=== PATIENT | female | born 1940 | race Two or more races ===

== ENCOUNTER 2018-05-01 23:02 | Emergency (ER) | payer MEDICAID ==
[~2018-05-01] VITALS: Ht 160 cm; Wt 81.6 kg
[2018-05-01 23:12] VITALS: BP 152/67
--- NOTE | 2018-05-01 23:51 | Emergency Room Report ---
History of Present Illness General Chief Complaint: Hypertension Source: EMS Present Illness HPI 77HF with grandson here b/c pt. concerned re high bp. The grandson gave oral antihtn med at home about an hour ago. Not sure which one (clonidine, HCTZ?). There are NO symptoms, just the hbp. No cp, no sob, no headache, no visual complaint. No n/v. No issues, no change in meds. Allergies: Coded Allergies: No Known Allergies (Unverified , 05/01/18) Patient History Now: No Nursing Documentation-PM Past Medical History: No History, Except For Hx Hypertension: Yes Hx Diabetes: Yes Review of Systems Constitutional: Reports: no symptoms Eye: Reports: no symptoms ENT: Reports: no symptoms Respiratory: Reports: no symptoms Cardiovascular: Reports: no symptoms Gastrointestinal: Reports: no symptoms Genitourinary: Reports: no symptoms Musculoskeletal: Reports: no symptoms Skin: Reports: no symptoms Psychiatric: Reports: no symptoms Neurological: Reports: no symptoms Endocrine: Reports: no symptoms Hematologic/Lymphatic: Reports: no symptoms Allergic: Reports: no symptoms All Other Systems: negative except mentioned in HPI Physical Exam Vital Signs Date Time Temp Pulse Resp B/P (MAP) Pulse Ox O2 Delivery O2 Flow Rate FiO2 05/01/18 23:03 99.1 78 18 221/78 99 Room Air Sp02 EP Interpretation: reviewed, normal General Appearance: normal inspection, well appearing, no apparent distress, alert, GCS 15, non-toxic Head: normocephalic, atraumatic Eyes: bilateral eye normal inspection, bilateral eye PERRL, bilateral eye EOMI ENT: normal ENT inspection, hearing grossly normal, normal pharynx, no angioedema, normal voice, moist mucus membranes Neck: normal inspection, full range of motion, supple, no meningismus, no bony tend Respiratory: normal inspection, lungs clear, normal breath sounds, no rhonchi, no respiratory distress, no retraction, no accessory muscle use, no wheezing Cardiovascular #1: normal inspection, regular rate, rhythm, no edema Gastrointestinal: normal inspection, normal bowel sounds, non tender, soft, no mass, non-distended Musculoskeletal: gait/station normal, normal range of motion Neurologic: normal inspection, alert, oriented x3, responsive, motor strength/ tone normal Psychiatric: normal inspection, judgement/insight normal, memory normal Suicide Risk Assessment: Suicidal Ideation: No Had intent to initiate attempt: No Pt's plan for suicide attempt: No Has means to complete attempt: No Skin: normal inspection, normal color, no rash, warm/dry Medical Decision Making Diagnostic Impression: Primary Impression: Hypertension ER Course This is a baseline anxious person. There is nothing that needs to be done at this time. RR, HR, BP, pulse ox all ok. 172/46 now with no Rx. by us. Lungs cta , heart regular. Rhythm Strip Diag. Results Rhythm Strip Time: 23:50 EP Interpretation: yes Rate: 63 Rhythm: NSR Last Vital Signs Date Time Temp Pulse Resp B/P (MAP) Pulse Ox O2 Delivery O2 Flow Rate FiO2 05/01/18 23:03 99.1 78 18 221/78 99 Room Air Status: improved Disposition: HOME, SELF-CARE Condition: Stable Referrals: Blaine WELLS,REFERRING (PCP) Patient Instructions: Hypertension, [id number] Sarmad Arnold M.D. May 01, 2018 23:51
[2018-05-02 01:10] VITALS: BP 150/70
[2018-05-02 01:20] VITALS: BP 150/70
== END 2018-05-02 01:20 | disposition home or self-care (01) ==
LOC: EDBD 23:02 → EMR 23:30
DX: I10 Essential (primary) hypertension (principal); E11.9 Type 2 diabetes mellitus without complications; Z79.899 Other long term (current) drug therapy
CPT/HCPCS: 99283